=== PATIENT | male | born 1975 | race African-American/Black ===

== ENCOUNTER → 2016-08-30 | Outpatient (CLI) | payer SELFPAY ==
--- NOTE | 2016-08-30 08:07 | US ---
EXAMINATION TYPE: US abdomen complete DATE OF EXAM: 08/30/2016 7:52 AM COMPARISON: NONE CLINICAL HISTORY: R82.90 Abnormal findings in urine. Bilirubin seen in urine. No pain. NPO. EXAM MEASUREMENTS: Liver Length: 15.8 cm Gallbladder Wall: 0.2 cm CBD: 0.4 cm Spleen: 11.2 cm Right Kidney: 11.0 x 6.9 x 4.3 cm Left Kidney: 10.3 x 5.8 x 7.1 cm Pancreas: Head not well seen due to overlying bowel gas. Possible lesion seen in pancreatic body, n onvascular = 1.2 x 2.1 x 1.0 cm Liver: wnl Gallbladder: wnl Evidence for sonographic Gerardo's sign: neg CBD: wnl Spleen: wnl Right Kidney: wnl Left Kidney: wnl Upper IVC: seen Abd Aorta: Mid not well seen due to overlying bowel gas The liver is homogenous. The intrahepatic portion of the IVC and proximal abdominal aorta are within normal limits. There is no evidence of cholelithiasis. Common bile duct is unremarkable. Hypoechoi c area seen within the region of the pancreatic head measuring 1.2 x 1[address] of the abdomen with dedicated pancreatic protocol recommended. The spleen is unremarkable. Kidneys are symmetric an d free of hydronephrosis. No renal lesions are seen. IMPRESSION: 1. I cannot exclude a pancreatic head lesion.CT of the abdomen with dedicated pancreatic protocol rec ommended.
== END ==
LOC: RADUSWWP 07:12
PROVIDERS: ATTEND Family Medicine
DX: R82.90 Unspecified abnormal findings in urine (principal)
CPT/HCPCS: 76700